=== PATIENT | female | born 1950 | race Caucasian/White ===

== ENCOUNTER → 2024-03-08 07:34 | Outpatient (REF) | payer MEDICARE, OTHER, SELFPAY ==
[2024-03-08 09:09] LABS: % Basophils 1.2 % (0-2); % Eosinophils 2.4 % (0-6); % Immature Granulocytes 0.2 % (0-0.5); % Lymphocytes 28.2 % (20.5-51.1); % Monocytes 11.2 % (1.7-9.3); % Neutrophils 56.8 % (42.2-75.2); Absolute Basophils 0.1 10^3/uL (0-0.2); Absolute Eosinophils 0.1 10^3/uL (0-0.7); Absolute Lymphocytes 1.2 10^3/uL (1.2-3.4); Absolute Monocytes 0.5 10^3/uL (0.1-0.6); Absolute Neutrophils 2.3 10^3/uL (1.4-6.5); Hematocrit 36.4 % (37.0-47.0); Mean Corp Hgb Conc. 35.7 g/dL (33.0-37.0); Mean Corpuscular Hgb 32.5 pg (27.0-31.0); Mean Platelet Volume 8.5 fL (7.4-10.4); Nucleated Red Blood Cells % 0 %; Platelet Count 334 10^3/uL (130-400); Red Cell Dist. Width 11.9 % (11.5-14.5); White Blood Cell Count 4.1 10^3/uL (4.8-10.8)
[2024-03-08 09:45] LABS: HDL Cholesterol 102 mg/dl; LDL Cholesterol, Calculated 118 mg/dl; Total Cholesterol 229 mg/dl (50-199); Triglyceride 49 mg/dl (10-149); Very Low Density Lipoprotein 9 mg/dl (0-30)
[2024-03-08 09:49] LABS: Urine Albumin Negative (Neg - Trace); Urine Bilirubin Negative (Negative); Urine Character Clear (Clear); Urine Color Yellow; Urine Glucose Negative (Negative); Urine Ketone Negative (Negative); Urine Leukocyte Trace (Negative); Urine Nitrite Negative (Negative); Urine Occult Blood Negative (Negative); Urine Specific Gravity 1.005 (<1.030); Urine Urobilinogen Negative (Neg - 1+)
[2024-03-08 09:57] LABS: Vitamin D, 25-OH*** 45.6 ng/mL (30-80)
[2024-03-08 10:11] LABS: TSH Reflex To Free T4 1.45 uIU/ml (0.47-4.68)
[2024-03-08 10:45] LABS: Urine Squamous Cell 0-2 /LPF (Few)
[2024-03-08 10:46] LABS: Urine Red Blood Cell None Seen /HPF (0-2); Urine White Cell 0-2 /HPF (0-5)
[2024-03-09 20:21] LABS: Thyroglobulin Antibodies <0.9 IU/mL (0.0-4.0); Thyroid Peroxidase Ab (TPO) <0.3 IU/mL (0.0-9.0)
== END ==
LOC: REG 07:34
PROVIDERS: ATTENDING PHYSICIAN Internal Medicine Geriatric Medicine
DX: Z76.89 Persons encountering health services in other specified circumstances (principal); E78.2 Mixed hyperlipidemia; I10 Essential (primary) hypertension; M85.89 Other specified disorders of bone density and structure, multiple sites; Z13.31 Encounter for screening for depression; Z83.49 Family history of other endocrine, nutritional and metabolic diseases; E55.9 Vitamin D deficiency, unspecified
CPT/HCPCS: 36415; 80061; 81003; 81015; 82306; 84443; 85025; 86376; 86800

== ENCOUNTER → 2024-03-10 13:11 | Outpatient (REF) | payer MEDICARE, OTHER, SELFPAY | LOC: WDC 13:11 | PROVIDERS: ATTENDING PHYSICIAN Internal Medicine Geriatric Medicine | DX: Z12.31 Encounter for screening mammogram for malignant neoplasm of breast (principal) | CPT/HCPCS: 77063; 77067 ==

== ENCOUNTER → 2025-02-06 11:05 | Outpatient (REF) | payer MEDICARE, OTHER, SELFPAY | LOC: RCS 11:05 | PROVIDERS: ATTENDING PHYSICIAN Nurse Practitioner Adult Health; FAMILY PHYSICIAN Internal Medicine Geriatric Medicine | DX: I10 Essential (primary) hypertension (principal); R00.2 Palpitations | CPT/HCPCS: 93005 ==

== ENCOUNTER → 2025-03-10 11:46 | Outpatient (REF) | payer MEDICARE, OTHER, SELFPAY ==
[2025-03-10 13:14] LABS: Blood Urea Nitrogen 12 mg/dl (7-17); Calcium 9.4 mg/dl (8.4-10.2); Carbon Dioxide 27 mmol/L (22-30); Chloride 103 mmol/L (98-107); Glucose 103 mg/dl (70-99); Potassium 5.6 mmol/L (3.5-5.1); Sodium 136 mmol/L (135-145); eGFR > 60.00
[2025-03-14 08:19] LABS: Aldosterone/Renin Activ Ratio 6.5 ratio (<=25.0); Renin Activity Results 0.9 ng/mL/hr
== END ==
LOC: REG 11:46
PROVIDERS: ATTENDING PHYSICIAN Internal Medicine Geriatric Medicine
DX: I10 Essential (primary) hypertension (principal); Z00.00 Encounter for general adult medical examination without abnormal findings; M85.89 Other specified disorders of bone density and structure, multiple sites; E78.2 Mixed hyperlipidemia; E55.9 Vitamin D deficiency, unspecified; G45.9 Transient cerebral ischemic attack, unspecified; R00.2 Palpitations
CPT/HCPCS: 36415; 80048; 82088; 83835; 84244

== ENCOUNTER → 2025-03-14 11:03 | Outpatient (REF) | payer MEDICARE, OTHER, SELFPAY | LOC: WDC 11:03 | PROVIDERS: ATTENDING PHYSICIAN Internal Medicine Geriatric Medicine | DX: Z12.31 Encounter for screening mammogram for malignant neoplasm of breast (principal) | CPT/HCPCS: 77063; 77067 ==

== ENCOUNTER → 2025-03-27 08:06 | Outpatient (REF) | payer MEDICARE, OTHER, SELFPAY ==
[2025-03-27 16:58] LABS: Blood Urea Nitrogen 12 mg/dl (7-17); Calcium 9.4 mg/dl (8.4-10.2); Carbon Dioxide 27 mmol/L (22-30); Chloride 90 mmol/L (98-107); Glucose 104 mg/dl (70-99); Potassium 4.5 mmol/L (3.5-5.1); Sodium 125 mmol/L (135-145); eGFR > 60.00
== END ==
LOC: RCS 08:06
PROVIDERS: ATTENDING PHYSICIAN Internal Medicine Geriatric Medicine; REFERRING PHYSICIAN Nurse Practitioner Family
DX: Z00.00 Encounter for general adult medical examination without abnormal findings (principal); I10 Essential (primary) hypertension; M85.89 Other specified disorders of bone density and structure, multiple sites; E78.2 Mixed hyperlipidemia; E55.9 Vitamin D deficiency, unspecified; G45.9 Transient cerebral ischemic attack, unspecified; R00.2 Palpitations
CPT/HCPCS: 36415; 80048; 93225; 93226; 93306

== ENCOUNTER → 2025-03-31 09:26 | Outpatient (REF) | payer MEDICARE, OTHER, SELFPAY ==
[2025-03-31 10:44] LABS: Blood Urea Nitrogen 9 mg/dl (7-17); Calcium 9.4 mg/dl (8.4-10.2); Carbon Dioxide 26 mmol/L (22-30); Chloride 99 mmol/L (98-107); Glucose 107 mg/dl (70-99); Potassium 5.2 mmol/L (3.5-5.1); Sodium 133 mmol/L (135-145); eGFR > 60.00
== END ==
LOC: REG 09:26
PROVIDERS: ATTENDING PHYSICIAN Internal Medicine Geriatric Medicine
DX: I10 Essential (primary) hypertension (principal); M85.89 Other specified disorders of bone density and structure, multiple sites; E78.2 Mixed hyperlipidemia; E55.9 Vitamin D deficiency, unspecified; G45.9 Transient cerebral ischemic attack, unspecified; R00.2 Palpitations; E87.1 Hypo-osmolality and hyponatremia; Z13.31 Encounter for screening for depression
CPT/HCPCS: 36415; 80048

== ENCOUNTER → 2025-04-08 06:54 | Outpatient (REF) | payer MEDICARE, OTHER, SELFPAY | LOC: PAVMRI 06:54 | PROVIDERS: ATTENDING PHYSICIAN Internal Medicine Geriatric Medicine | DX: Z00.00 Encounter for general adult medical examination without abnormal findings (principal) | CPT/HCPCS: 70551 ==

== ENCOUNTER → 2025-07-14 12:18 | Outpatient (REF) | payer MEDICARE, OTHER, SELFPAY ==
[2025-07-14 14:17] LABS: Blood Urea Nitrogen 12 mg/dl (7-17); Calcium 9.5 mg/dl (8.4-10.2); Carbon Dioxide 26 mmol/L (22-30); Chloride 96 mmol/L (98-107); Glucose 86 mg/dl (70-99); Potassium 4.7 mmol/L (3.5-5.1); Sodium 130 mmol/L (135-145); eGFR > 60.00
== END ==
LOC: REG 12:18
PROVIDERS: ATTENDING PHYSICIAN Internal Medicine Geriatric Medicine
DX: I10 Essential (primary) hypertension (principal); M85.89 Other specified disorders of bone density and structure, multiple sites; E78.2 Mixed hyperlipidemia; E55.9 Vitamin D deficiency, unspecified; G45.9 Transient cerebral ischemic attack, unspecified; R00.2 Palpitations; E87.1 Hypo-osmolality and hyponatremia; Z13.31 Encounter for screening for depression
CPT/HCPCS: 36415; 80048

== ENCOUNTER → 2025-07-19 09:13 | Outpatient (REF) | payer MEDICARE, OTHER, SELFPAY ==
[2025-07-19 10:53] LABS: HDL Cholesterol 91 mg/dl; LDL Cholesterol, Calculated 70 mg/dl; Sodium 132 mmol/L (135-145); Very Low Density Lipoprotein 10 mg/dl (0-30)
== END ==
LOC: REG 09:13
PROVIDERS: ATTENDING PHYSICIAN Internal Medicine Geriatric Medicine
DX: E87.1 Hypo-osmolality and hyponatremia (principal); E78.00 Pure hypercholesterolemia, unspecified
CPT/HCPCS: 36415; 80061; 83930; 83935; 84295; 84300